=== PATIENT | male | born 1955 | race Caucasian/White ===

== ENCOUNTER 2017-12-01 07:55 | Emergency (ER) | payer BC ==
[2017-12-01] MEDS ORDERED: Ondansetron 8 MG in Sodium Chloride 0.9% 50 ML IV PRN (08:13)
[2017-12-01] MEDS ORDERED: Ketorolac 60 MG/2 ML SDV IM ONE (08:13)
[2017-12-01] MEDS ORDERED: fentaNYL 100 MCG/2 ML SDV IVPUSH ONE ×2 (08:14→10:16)
[2017-12-01] MEDS ORDERED: Sodium Chloride 0.9% 1,000 ML IV SCH (08:15)
[2017-12-01] MEDS ORDERED: Tamsulosin 0.4 MG Cap.ER PO ONE (08:16)
--- NOTE | 2017-12-01 08:25 | EDM.PDOC ---
ED HPI GENERAL MEDICAL PROBLEM - General Chief Complaint: Back Pain or Injury Stated Complaint: back pain, nausea Time Seen by Provider: 12/01/17 08:10 Source of Information: Reports: Patient History Limitations: Reports: No Limitations - History of Present Illness INITIAL COMMENTS - FREE TEXT/NARRATIVE: States that he woke up about 0400 this AM with pain to the right flank area. Has history of kidney stones in the past. Pain is sharp and causing nausea. Dry heaves noted. Has not noted any blood in his urine. 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 Has not taken anything prior to coming in. Is pacing room as he is not able to find position of comfort. Onset: Today Duration: Constant Location: Reports: Abdomen Quality: Reports: Sharp, Stabbing Severity: Severe Associated Symptoms: Reports: Nausea/Vomiting. Denies: Chest Pain, Shortness of Breath Flank Pain Score (Numeric/FACES): 10 - Related Data Allergies Allergy/AdvReac Type Severity Reaction Status Date / Time hydrocodone Allergy Other Verified 12/03/17 09:03 Home Meds: Home Meds Aspirin 81 mg PO DAILY 12/03/17 [History] Past Medical History Genitourinary History: Reports: Renal Calculus Social & Family History - Tobacco Use Smoking Status *Q: Current Status Unknown ED ROS GENERAL - Review of Systems Review Of Systems: See Below Constitutional: Reports: No Symptoms HEENT: Reports: No Symptoms Respiratory: Reports: No Symptoms Cardiovascular: Reports: No Symptoms GI/Abdominal: Reports: Abdominal Pain : Reports: Flank Pain. Denies: Dysuria, Frequency Musculoskeletal: Reports: No Symptoms Skin: Reports: No Symptoms ED EXAM, RENAL/ - Physical Exam Exam: See Below Exam Limited By: No Limitations General Appearance: Alert, WD/WN, Severe Distress Ears: Normal External Exam, Normal Canal Nose: Normal Inspection Throat/Mouth: Normal Inspection, Normal Oropharynx, Normal Voice, No Airway Compromise Head: Atraumatic, Normocephalic Neck: Normal Inspection, Supple, Non-Tender, Full Range of Motion Respiratory/Chest: No Respiratory Distress, Lungs Clear, Normal Breath Sounds Cardiovascular: Regular Rate, Rhythm, No Edema GI/Abdominal: Normal Bowel Sounds, Soft, Non-Tender (Male) Exam: No: Testicular Tenderness (L), Testicular Tenderness (R) Back Exam: Full Range of Motion, CVA Tenderness (R) Extremities: Normal Range of Motion, Normal Capillary Refill Neurological: Alert, Oriented Skin Exam: Warm, Dry, Intact Course - Vital Signs Last Recorded V/S: Last Vital Signs Temp 95 F L 12/01/17 07:55 Pulse 56 L 12/01/17 07:55 Resp 18 12/01/17 07:55 BP 150/90 H 12/01/17 09:22 Pulse Ox 99 12/01/17 07:55 - Orders/Labs/Meds Labs: Laboratory Tests 12/01/17 12/01/17 12/01/17 Range/Units 08:05 08:05 08:10 WBC 9.4 (5.0-10.0) 10^3/uL RBC 5.16 (4.50-6.00) 10^6/uL Hgb 15.8 (14.0-18.0) g/dL Hct 46.3 (40.0-54.0) % MCV 89.7 (82.0-94.0) fL MCH 30.6 (27.0-32.0) pg MCHC 34.1 (33.0-38.0) g/dL RDW Coeff of Phil 14.7 (11.0-15.0) % Plt Count 296 (150-400) 10^3/uL Neut % (Auto) 81.7 (35-85) % Lymph % (Auto) 12.2 (10-55) % [place] % (Auto) 5.6 (0-16) % Eos % (Auto) 0.3 (0-5) % Baso % (Auto) 0.2 (0-3) % Neut # (Auto) 7.68 H (1.80-7.00) 10^3/uL Lymph # (Auto) 1.15 (1.00-4.80) 10^3/uL [place] # (Auto) 0.53 (0.00-0.80) 10^3/uL Eos # (Auto) 0.03 (0.00-0.45) 10^3/uL Baso # (Auto) 0.02 10^3/uL Sodium 140 (136-145) mEq/L Potassium 3.7 (3.5-5.0) mEq/L Chloride 103 (98-106) mEq/L Carbon Dioxide 26 (21-32) mmol/L BUN 19 H (7-18) mg/dL Creatinine 1.4 H (0.7-1.3) mg/dL Est Cr Clr Drug Dosing TNP Estimated GFR (MDRD) 51 L (>=60) mL/min Glucose 133 H D (75-99) mg/dL Calcium 9.2 (8.4-10.1) mg/dL Urine Color Yellow (YELLOW) Urine Appearance Clear (CLEAR) Urine pH 5.0 (4.5-8.0) Ur Specific [place] 1.025 H (1.003-1.020) Urine Protein Negative (NEGATIVE) mg/dL Urine Glucose (UA) Negative (NEGATIVE) mg/dL Urine Ketones Negative (NEGATIVE) mg/dL Urine Occult Blood Trace-lysed H (NEGATIVE) Urine Nitrite Negative (NEGATIVE) Urine Bilirubin Negative (NEGATIVE) Urine Urobilinogen 0.2 (0.2-1.0) EU/dL Ur Leukocyte Esterase Negative (NEGATIVE) Urine RBC Not seen (0-5) /HPF Urine WBC Not seen (0-5) /HPF Ur Squamous Epith Cells Occasional H (NOT SEEN) /HPF Urine Bacteria Occasional H (NOT SEEN) /HPF Urinalysis Comment See note Meds: Medications Discontinued Medications Generic Name Dose Route Start Last Admin Trade Name Freq PRN Reason Stop Dose Admin Fentanyl 50 mcg 12/01/17 08:14 12/01/17 08:47 Sublimaze IVPUSH 12/01/17 08:15 50 mcg ONETIME ONE Administration Fentanyl 50 mcg 12/01/17 10:16 12/01/17 10:23 Sublimaze IVPUSH 12/01/17 10:17 50 mcg ONETIME ONE Administration Sodium Chloride 1,000 mls @ 500 mls/hr 12/01/17 08:15 12/01/17 08:40 Normal Saline IV 500 mls/hr ASDIRECTED VERENICE Administration Ondansetron HCl 8 mg/ Sodium 54 mls @ 100 mls/hr 12/01/17 08:13 12/01/17 08: 52 Chloride IV 100 mls/hr Q8H PRN Administration Nausea Ketorolac Tromethamine 60 mg 12/01/17 08:13 12/01/17 08:22 Toradol IM 12/01/17 08:14 60 mg ONETIME ONE Administration Tamsulosin HCl 0.4 mg 12/01/17 08:16 12/01/17 08:54 Flomax PO 12/01/17 08:17 0.4 mg ONETIME ONE Administration - Re-Assessments/Exams Free Text/Narrative Re-Assessment/Exam: 12/01/17 12:30 IV fluids in. Pain has subsided. WIll discharge with strainer to home. Will discharge on Tramadol if needed. Follow up for further concerns Departure - Departure Time of Disposition: 12:45 Disposition: Home, Self-Care 01 Condition: Good Clinical Impression: Kidney stone on right side - Discharge Information Instructions: Kidney Stones, [id number] Referrals: PCP,None [Primary Care Provider] - Forms: ED Department Discharge Additional Instructions: push fluids as much as possible flomax daily for the next 2 weeks [place] take 1-2 tabs as needed for pain Recheck if pain does not resolve over the next several days strain urine for the next 48 hours to look for the stone. If found bring to the lab. - Problem List & Annotations (1) Kidney stone on right side SNOMED Code(s): 05823945 Code(s): N20.0 - CALCULUS OF KIDNEY Status: Acute Priority: High - Problem List Review Problem List Initiated/Reviewed/Updated: Yes
[2017-12-01 08:35] LABS: CHLORIDE,CL 103 mEq/L (98-106); SODIUM,NA 140 mEq/L (136-145)
== END 2017-12-01 12:54 | disposition home or self-care (01) ==
LOC: CC.ED 07:55
DX: N20.0 Calculus of kidney (principal); Z88.5 Allergy status to narcotic agent; Z79.82 Long term (current) use of aspirin; Z87.442 Personal history of urinary calculi
CPT/HCPCS: 36415; 74176; 80048; 81001; 85025; 96361; 96365; 96372; 96375; 96376; 99284; A9270; J1885; J2405; J3010; J7030; J7050

== ENCOUNTER 2017-12-03 08:56 | Emergency (ER) | payer BC ==
[2017-12-03] MEDS ORDERED: Ketorolac 60 MG/2 ML SDV IM ONE (08:59)
--- NOTE | 2017-12-03 09:35 | EDM.PDOC ---
ED HPI GENERAL MEDICAL PROBLEM - General Chief Complaint: Genitourinary Problem Stated Complaint: kidney stone Time Seen by Provider: 12/03/17 09:15 Source of Information: Reports: Patient History Limitations: Reports: No Limitations - History of Present Illness INITIAL COMMENTS - FREE TEXT/NARRATIVE: Patient presents today with complaints of right flank pain. was in on Friday to the ER and was diagnosed with a kidney stone. He had a CT scan that showed a 3 mm stone at the right UV junction. He was put on Flomax and hydrocodone and has been pushing fluids. Was doing well yesterday but began to have significant pain again last night. States unable to take hydrocodone as he does not tolerate it so has just been trying to wait out the pain. He has a history of kidney stones. 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 He has not required any surgical intervention for his stones in the past. Did get a Toradol injection on Friday and states that did help a great deal. Onset: Gradual Duration: Day(s): Location: Reports: Abdomen Quality: Reports: Sharp, Stabbing Severity: Moderate Improves with: Reports: Medication Associated Symptoms: Reports: No Other Symptoms Right Flank Pain Score (Numeric/FACES): 3 - Related Data Allergies Allergy/AdvReac Type Severity Reaction Status Date / Time hydrocodone Allergy Other Verified 12/03/17 09:03 Home Meds: Home Meds Aspirin 81 mg PO DAILY 12/03/17 [History] Past Medical History HEENT History: Reports: None Cardiovascular History: Reports: None Respiratory History: Reports: None Gastrointestinal History: Reports: None Genitourinary History: Reports: Renal Calculus Musculoskeletal History: Reports: None Neurological History: Reports: None Psychiatric History: Reports: None Endocrine/Metabolic History: Reports: None Hematologic History: Reports: None Immunologic History: Reports: None Oncologic (Cancer) History: Reports: None Dermatologic History: Reports: None - Infectious Disease History Infectious Disease History: Reports: None - Past Surgical History Head Surgeries/Procedures: Reports: None HEENT Surgical History: Reports: None Cardiovascular Surgical History: Reports: None GI Surgical History: Reports: None Male Surgical History: Reports: None Endocrine Surgical History: Reports: None Neurological Surgical History: Reports: None Musculoskeletal Surgical History: Reports: Other (See Below) Other Musculoskeletal Surgeries/Procedures:: neck surgery Oncologic Surgical History: Reports: None Dermatological Surgical History: Reports: None Social & Family History - Tobacco Use Smoking Status *Q: Never Smoker - Recreational Drug Use Recreational Drug Use: No ED ROS GENERAL - Review of Systems Review Of Systems: See Below Constitutional: Denies: Fever, Chills, Malaise, Weakness, Decreased Appetite HEENT: Reports: No Symptoms Respiratory: Reports: No Symptoms Cardiovascular: Reports: No Symptoms Endocrine: Denies: Fatigue GI/Abdominal: Reports: Abdominal Pain. Denies: Diarrhea, Nausea, Vomiting : Reports: Flank Pain Musculoskeletal: Reports: No Symptoms Skin: Reports: No Symptoms ED EXAM, GI/ABD - Physical Exam Exam: See Below Exam Limited By: No Limitations General Appearance: Alert, WD/WN, Mild Distress Ears: Normal External Exam, Normal TMs Nose: Normal Inspection, Normal Mucosa, No Blood Throat/Mouth: Normal Inspection, Normal Oropharynx Head: Normocephalic Neck: Normal Inspection, Supple, Non-Tender Respiratory/Chest: No Respiratory Distress, Lungs Clear, Normal Breath Sounds Cardiovascular: Regular Rate, Rhythm GI/Abdominal Exam: Normal Bowel Sounds, Soft, Tender (RLQ), Other (CVA tenderness ) Extremities: Normal Inspection, No Pedal Edema Neurological: Alert, Oriented Skin Exam: Warm, Dry Course - Vital Signs Last Recorded V/S: Last Vital Signs Temp 97.2 F 12/03/17 08:58 Pulse 87 12/03/17 08:58 Resp 18 12/03/17 08:58 BP 157/90 H 12/03/17 08:58 Pulse Ox 94 L 12/03/17 08:58 - Orders/Labs/Meds Meds: Medications Discontinued Medications Generic Name Dose Route Start Last Admin Trade Name Freq PRN Reason Stop Dose Admin Ketorolac Tromethamine 60 mg 12/03/17 08:59 12/03/17 09:20 Toradol IM 12/03/17 09:00 60 mg ONETIME ONE Administration - Re-Assessments/Exams Free Text/Narrative Re-Assessment/Exam: 12/03/17 Reviewed ER record from Friday as well as CT scan. Toradol given and had improvement of pain. Given Tramadol Rx for pain at home. Departure - Departure Time of Disposition: 09:32 Disposition: Home, Self-Care 01 Condition: Fair Clinical Impression: Kidney stone on right side - Discharge Information Forms: ED Department Discharge Additional Instructions: 1. Push fluids 2. Tramadol 50 mg 1-2 tabs every 6 hours as needed 3. Strain urine 4. Continue Flomax 5. If continue to have ongoing pain over the next 4-5 days, may need to be seen and have additional scan or referral to urology 6. Call with any questions or concerns
== END 2017-12-03 09:47 | disposition home or self-care (01) ==
LOC: CC.ED 08:56
DX: N20.0 Calculus of kidney (principal); Z88.5 Allergy status to narcotic agent; Z79.82 Long term (current) use of aspirin
CPT/HCPCS: 96372; 99283; J1885